=== PATIENT | female | born 1995 | race Caucasian/White ===

== ENCOUNTER 2017-03-16 06:38 | Day surgery (SDC) | payer OTHER ==
[2017-03-12 17:11] VITALS: BMI 21.1
[2017-03-16] MEDS ORDERED: DEXAMETHASONE SOD PHOSPHATE/PF 10 MG/ML SDV ONE (07:10)
[2017-03-16] MEDS ORDERED: MIDAZOLAM HCL 2 MG/2 ML SINGLE DOSE VIAL ONE (07:10)
[2017-03-16] MEDS ORDERED: ROPIVACAINE HCL 0.5% 30ML VIAL ONE (07:11)
[2017-03-16] MEDS ORDERED: TRANEXAMIC ACID 1000 MG/10 ML VIAL ONE ×2 (07:22→09:51)
[2017-03-16] MEDS ORDERED: PROPOFOL 20 ML ONE ×4 (07:22→10:24)
[2017-03-16] MEDS ORDERED: BUPIVACAINE HCL/EPINEPHRINE/PF 30 ML VIAL IJ ONE (07:23)
[2017-03-16] MEDS ORDERED: VANCOMYCIN 1,000 MG VIAL (RESTRICTED TO ID ONLY) ONE (07:23)
--- NOTE | 2017-03-16 07:48 | HP ---
Admitting History and Physical - Admission History of Present Illness: The patient is a 21 yo female who sustained an injury while playing soccer. She is experiencing instability with certain movments and has occasional pain. She denies any swelling. NO fevers, CP, SOB or dysuria. History Source: Patient Limitations to Obtaining History: No Limitations - Past Medical History Cardiovascular: Yes: Deep Vein Thrombosis. No: HTN Pulmonary: Yes: Bronchitis. No: Asthma Gastrointestinal: No: Constipation, GERD Renal/: No: Hematuria, UTI - Past Surgical History Additional Past Surgical History: adenoid surgery - Smoking History Smoking history: Never smoked Have you smoked in the past 12 months: No - Alcohol/Substance Use Hx Alcohol Use: No Home Medications - Allergies Allergies/Adverse Reactions: Allergies Allergy/AdvReac Type Severity Reaction Status Date / Time azithromycin [From Zithromax] Allergy Severe ABDOMINAL Verified 03/16/17 07:04 PAIN gluten Allergy Unknown ABDOMINAL Verified 03/16/17 07:04 PAIN xylitol Allergy Swelling Verified 03/16/17 07:04 DAIRY AdvReac Unknown ABDOMINAL Uncoded 03/16/17 07:04 PAIN - Home Medications Home Medications: Ambulatory Orders NK [No Known Home Medication] 03/12/17 Review of Systems - Review of Systems Constitutional: denies: Chills, Fever Neck: denies: Decreased ROM, Pain on Movement Cardiovascular: denies: Chest Pain, Palpitations Respiratory: denies: Cough, SOB Gastrointestinal: denies: Abdominal Pain, Constipation Genitourinary: reports: Discharge. denies: Burning, Dysuria Musculoskeletal: reports: Extremity Pain (left knee occasional/instability.). denies: Decreased ROM, Joint Pain Integumentary: denies: Blister, Bruising, Erythema (to left knee) Neurological: denies: Headache, Parasthesia, Seizure Hematology/Lymphatic: denies: Easily Bruised, Excessive Bleeding Physical Examination Vital Signs: Vital Signs Temperature 97.9 F 03/16/17 07:06 Pulse Rate 68 03/16/17 07:06 Respiratory Rate 18 03/16/17 07:06 Blood Pressure 121/70 03/16/17 07:06 O2 Sat by Pulse Oximetry (%) 100 03/16/17 07:06 HENT: Yes: WNL, Atraumatic, Normocephalic Neck: Yes: WNL, Supple, Trachea Midline Cardiovascular: Yes: WNL, Regular Rate and Rhythm Respiratory: Yes: WNL, Regular, CTA Bilaterally Gastrointestinal: Yes: WNL, Normal Bowel Sounds, Soft Musculoskeletal: No: Joint Swelling Extremities: Yes: Other (positive zhou's to left knee). No: Calf Tenderness , Deformity Edema: No Peripheral Pulses WNL: Yes Peripheral Pulses: Left Femoral: 2+, Right Femoral: 2+ Integumentary: No: Rash (to left knee), Skin Tear Neurological: Yes: WNL, Alert, Oriented ...Motor Strength: WNL, LUE, LLE, RUE, RLE Psychiatric: Yes: WNL, Alert, Oriented Labs: Laboratory Tests 03/16/17 06:53 Urine HCG, Qual Negative Assessment/Plan 21 yo female for repair of her left ACL tear/instability Will plan for local block/spinal IV abx at time of surgery DVT ppx with SCD/early ambulation Plan for discharge today
[2017-03-16] MEDS ORDERED: ONDANSETRON 4 MG/2 ML VIAL ONE (08:15)
[2017-03-16] MEDS ORDERED: DEXAMETHASONE SOD PHOSPHATE 4 MG/1 ML VIAL ONE (08:15)
[2017-03-16] MEDS ORDERED: DESFLURANE GAS 240 ML BOTTLE IH ONE (09:00)
[2017-03-16] MEDS ORDERED: PHENYLEPHRINE HCL 10 MG/1 ML SINGLE DOSE VIAL ONE (09:38)
--- NOTE | 2017-03-16 10:25 | OP ---
Operative Note - Note: Operative Date: 03/16/17 Pre-Operative Diagnosis: Left knee ACL tear with instability Operation: Left knee ACLR- BPTB Autograft Post-Operative Diagnosis: Same as Pre-op Surgeon: Donnie Cornejo Anesthesia: General, Peribulbar Operative Report Dictated: Yes
--- NOTE | 2017-03-16 10:27 | DS ---
Physical Examination Vital Signs: Vital Signs Temperature 97.9 F 03/16/17 07:06 Pulse Rate 68 03/16/17 07:06 Respiratory Rate 18 03/16/17 07:06 Blood Pressure 121/70 03/16/17 07:06 O2 Sat by Pulse Oximetry (%) 100 03/16/17 07:06 Discharge Summary Reason For Visit: ANTERIOR CRUCIATE LIGAMENT TEAR, LEFT KNEE Condition: Good - Instructions Diet, Activity, Other Instructions: Post Operative Instructions: ACL Reconstruction Dr. Donnie Cornejo 1. Pain following an ACL reconstruction is variable and can be significant. Some patients will have more pain than others. You have been provided with a prescription for medication that contains a narcotic. You are not allowed to drive while on this medication. Feel free to take medications such as Ibuprofen or Naprosyn in addition to the pain medicine if you do not have any problems with the NSAID class of medications. 2. You should not remove the main bandage for 1 week. You may shower tomorrow. You are NOT allowed to bathe or go swimming until the sutures are removed. Put band-aids on the incision after your shower and do not put any creams or lotions over the incisions. 3. You are allowed to put your weight on the leg and bend your knee, however, you should use crutches for assistance unless directed otherwise. 4. Getting the knee straight is your most important goal during the first 72 hours following an ACL reconstruction. Try not to lie down with a pillow under your knee. Instead the pillow should be under your ankle, thus allowing you to push your knee straight down into the bed. This is a very important milestone to achieve before your first post-surgery visit with me. 5. Swelling around the knee is normal following an ACL reconstruction. 6. The area around the knee and along the front of your flannery will also become swollen and black and blue. 7. Apply ice to the knee for 15 min every hour or so. You may continue this for as many days as you like. 8. Please call the office to schedule a visit to have your sutures removed. 9. If for any reason you believe you may have an infection or are concerned, please feel free to call me. I can be reached through our office number 24 hours a day. 10. Please call our office with any questions; we will review the surgical findings during your post operative visit. Disposition: HOME - Home Medications Comprehensive Discharge Medication List: Ambulatory Orders NK [No Known Home Medication] 03/12/17
[2017-03-16] MEDS ORDERED: ONDANSETRON 4 MG/2 ML VIAL IVPUSH PRN (10:52)
[2017-03-16] MEDS ORDERED: oxyCODONE HCL 5 MG TABLET PO PRN (10:52)
[2017-03-16] MEDS ORDERED: LACTATED RINGERS SOLUTION 1,000 ML IV SCH (11:00)
[2017-03-16 11:46] VITALS: TEMP 97.6
[2017-03-16] MEDS ORDERED: oxyCODONE HCL 5 MG TABLET ONE (12:46)
[2017-03-16 13:21] VITALS: BP 112/60; PULSE 58
--- NOTE | 2017-03-16 13:48 | SURG ---
Surgery Senior Economist Note Senior Economist: Filomena Tate PA-C Date of Service: 03/16/17 Diagnosis: Left knee ACL tear with instability Procedure: Left knee ACLR- BPTB Autograft I was present for the entirety of the operative procedure. For further detail, please refer to operative report. Visit type - Case Type Case Type: Scheduled Admission - Emergency Emergency Visit: No - New patient This patient is new to me today: Yes Date on this admission: 03/16/17 - Critical Care Critical Care patient: No
--- NOTE | 2017-03-21 15:44 | PATH ---
Surgical Pathology Report Patient Name: DANNI HALL Med. Rec. #: [id number] /Age/Gender: 1995 (Age: 21) / F Account: [id number] Location: [facility] Taken: 03/16/2017 Received: 03/16/2017 Reported: 03/21/2017 Physicians: Donnie Cornejo M.D. Specimen(s) Received SHAVINGS LEFT KNEE Clinical History Left ACL tear Final Diagnosis KNEE LEFT, ARTHROSCOPIC SHAVINGS: FIBROSYNOVIAL TISSUE, BONE AND SCANT CARTILAGE. Electronically Signed Karoline Diego M.D. Gross Description Received in formalin, labeled "shavings left knee," is a 3.5 x 3.2 x 0.4 cm. aggregate of wu-yellow soft tissue fragments. A technical sales representative portion is submitted in one cassette. /03/16/201703/16/2017
== END 2017-03-16 12:25 | disposition home or self-care (01) ==
LOC: FASU 06:38
PROVIDERS: ATTEND Orthopaedic Surgery
PROC: 0QU Lower Bones, Supplement (ICD-10-PCS; 2017-03-16)
PROC: 0MQP4ZZ Repair Left Knee Bursa and Ligament, Percutaneous Endoscopic Approach (ICD-10-PCS; principal; 2017-03-16 08:35)
DX: S83.512A Sprain of anterior cruciate ligament of left knee, initial encounter (principal); X58.XXXA Exposure to other specified factors, initial encounter; Y93.9 Activity, unspecified; Y92.9 Unspecified place or not applicable; Y99.9 Unspecified external cause status
CPT/HCPCS: 84703; 88304-TC; 94760; 97116-GP